=== PATIENT | female | born 1960 | race African-American/Black ===

== ENCOUNTER → 2025-02-06 | Day surgery (SDC) | payer MEDICARE, MEDICAID ==
[~2025-02-06] VITALS: Ht 160 cm; Wt 63.5 kg
[~2025-02-06] MED LIST: BEMP1TAB PO; BUPIVACAINE HCL/PF 0.5% (5MG/ML) 10ML ONE; FAMOTIDINE 20MG/2ML VIAL IV ONE; FENTANYL CITRATE/PF 50MCG/ML 5ML VIAL ONE; HYDR200T35 PO; LACTATED RINGERS 1,000 ML IV SCH; LIDOCAINE HCL 1% 10 MG/ML 10ML VIAL ONE; LOSA50TA41 PO; MAXZIDE PO; MIDAZOLAM HCL 2 MG/2 ML VIAL ONE; NITR-87 MT; POLYMYXIN B SULFATE 500000 UNITS/VIAL ONE; PRED10TA PO; PROPOFOL 200MG/20ML VIAL IV ONE
== END | disposition home or self-care (01) ==
LOC: OR 05:35
PROVIDERS: ATTEND Specialist
DX: K60.30 Anal fistula, unspecified (principal); K64.4 Residual hemorrhoidal skin tags; K64.8 Other hemorrhoids; I10 Essential (primary) hypertension; E78.5 Hyperlipidemia, unspecified; M19.90 Unspecified osteoarthritis, unspecified site; Z79.51 Long term (current) use of inhaled steroids; Z79.899 Other long term (current) drug therapy; Z88.6 Allergy status to analgesic agent; Z98.890 Other specified postprocedural states; Z88.8 Allergy status to other drugs, medicaments and biological substances
CPT/HCPCS: 46260; 88304; J3010; J0665; J1308; J2003; J2250; J3490; J2704